=== PATIENT | male | born 1990 | race Caucasian/White ===

== ENCOUNTER 2020-11-13 10:06 | Outpatient (REF) | payer BC, SELFPAY ==
[2020-11-13 11:21] LABS: MANUAL DIFF FLAG NO
[2020-11-13 11:34] LABS: Basophils Percent Auto 0.7 % (0-2); Eosinophils Absolute Auto 0.1 X10*3/uL (0.0-0.4); Eosinophils Percent Auto 1.8 % (0-4); Hematocrit 46.5 % (42-52); Hemoglobin 16.7 g/dl (14.0-18.0); Imm Gran Abs Auto 0.01 X10*3/uL (0.00-0.03); Imm Gran Pct Auto 0.2 % (0.0-0.4); Lymphocytes Absolute Auto 1.6 X10*3/uL (1.2-4.9); Lymphocytes Percent Auto 29.4 % (20-40); Mean Corpuscular HGB Conc 35.9 g/dl (31.0-36.0); Mean Corpuscular Hemoglobin 32.3 pg (27.0-33.0); Mean Corpuscular Volume 89.9 fL (80-98); Mean Platelet Volume 10.5 fL (9.4-12.4); Monocytes Absolute Auto 0.4 X10*3/uL (0.1-1.2); Monocytes Percent Auto 6.8 % (2-11); Neutrophils Absolute Auto 3.4 X10*3/uL (2.0-8.3); Neutrophils Percent Auto 61.1 % (45-73); Platelet Count 224 X10*3/uL (160-400); Red Blood Count 5.17 X10*6/uL (4.60-5.80); White Blood Count 5.6 X10*3/uL (4.8-10.8)
[2020-11-13 12:39] LABS: Alanine Aminotransferase 21 U/L (0-40); Albumin Level 4.6 g/dL (3.5-5.0); Alkaline Phosphatase 49 U/L (39-117); Aspartate Amino Transferase 18 U/L (5-37); Blood Urea Nitrogen 11 mg/dL (9-16); Calcium 9.8 mg/dL (8.4-10.2); Cholesterol 175 mg/dL; Estimated Glomerular Filt Rate > 60; Glucose Fasting 86 mg/dL (60-99); HDL Cholesterol 35 mg/dL; LDL Cholesterol Calculated 102 mg/dl; Total Protein 6.9 g/dL (6.5-8.0); Triglycerides 190 mg/dL
[2020-11-13 12:41] LABS: Vitamin D 25-OH Total 33.6 ng/mL (>30)
[2020-11-13 13:20] LABS: Anion Gap 15 (12-20); Carbon Dioxide 26 mmol/L (22-29); Chloride 105 mmol/L (96-108); Potassium 4.1 mmol/L (3.3-5.1); Sodium 142 mmol/L (135-145)
== END 2020-11-13 10:07 | disposition home or self-care (01) ==
LOC: HO.MANLDS 10:06
PROVIDERS: PCP Internal Medicine; Visit Provider Internal Medicine
DX: Z00.00 Encounter for general adult medical examination without abnormal findings (principal)
CPT/HCPCS: 36415; 80053; 80061; 82306; 85025

== ENCOUNTER 2021-12-02 15:59 | Outpatient (REF) | payer BC, SELFPAY ==
[2021-12-02 17:30] LABS: MANUAL DIFF FLAG NO
[2021-12-02 17:34] LABS: Basophils Absolute Auto 0.1 X10*3/uL (0.0-0.2); Basophils Percent Auto 0.7 % (0-2); Eosinophils Absolute Auto 0.1 X10*3/uL (0.0-0.4); Eosinophils Percent Auto 2.1 % (0-4); Hematocrit 42.5 % (42.0-52.0); Hemoglobin 15.7 g/dl (14.0-18.0); Imm Gran Abs Auto 0.03 X10*3/uL (0.00-0.03); Imm Gran Pct Auto 0.4 % (0.0-0.4); Lymphocytes Absolute Auto 2.3 X10*3/uL (1.2-4.9); Lymphocytes Percent Auto 34.3 % (20-40); Mean Corpuscular HGB Conc 36.9 g/dl (31.0-36.0); Mean Corpuscular Hemoglobin 32.6 pg (27.0-33.0); Mean Corpuscular Volume 88.4 fL (80.0-98.0); Mean Platelet Volume 10.4 fL (9.4-12.4); Monocytes Absolute Auto 0.4 X10*3/uL (0.1-1.2); Monocytes Percent Auto 6.1 % (2-11); Neutrophils Absolute Auto 3.8 x10*3/uL (2.0-8.3); Neutrophils Percent Auto 56.4 % (45-73); Platelet Count 224 X10*3/uL (160-400); Red Blood Count 4.81 X10*6/uL (4.60-5.80); Red Cell Distribution Width 12.2 % (11.0-16.0); White Blood Count 6.8 X10*3/uL (4.8-10.8)
[2021-12-02 18:03] LABS: Alanine Aminotransferase 56 U/L (0-40); Albumin Level 4.7 g/dL (3.5-5.0); Alkaline Phosphatase 52 U/L (39-117); Anion Gap 11 (12-20); Aspartate Amino Transferase 40 U/L (5-37); Blood Urea Nitrogen 10 mg/dL (9-16); Calcium 9.7 mg/dL (8.4-10.2); Carbon Dioxide 28 mmol/L (22-29); Chloride 105 mmol/L (96-108); Cholesterol 212 mg/dL; Estimated Glomerular Filt Rate > 60; Glucose Random 77 mg/dL (60-115); HDL Cholesterol 38 mg/dL; Potassium 4.1 mmol/L (3.3-5.1); Sodium 140 mmol/L (135-145); Total Protein 7.3 g/dL (6.5-8.0); Triglycerides 427 mg/dL
[2021-12-02 18:24] LABS: Thyroid Stimulating Hormone 2.11 uIU/mL (0.32-4.0); Vitamin D 25-OH Total 24.9 ng/mL (>30)
[2021-12-06 08:57] LABS: Testosterone, Total 405 ng/dL (250-1100)
== END 2021-12-02 16:00 | disposition home or self-care (01) ==
LOC: HO.MANLDS 15:59
PROVIDERS: PCP Internal Medicine; Visit Provider Internal Medicine
DX: Z00.00 Encounter for general adult medical examination without abnormal findings (principal)
CPT/HCPCS: 36415; 80053; 80061; 82306; 84403; 84443; 85025

== ENCOUNTER → 2022-02-10 13:39 | Outpatient (BNVA) | payer OTHER, SELFPAY | PROVIDERS: PCP Internal Medicine; Visit Provider Internal Medicine | DX: S63.642A Sprain of metacarpophalangeal joint of left thumb, initial encounter (principal); S63.592A Other specified sprain of left wrist, initial encounter; X50.0XXA Overexertion from strenuous movement or load, initial encounter | CPT/HCPCS: 73110; 99203 ==

== ENCOUNTER → 2022-02-24 09:51 | Outpatient (BNVA) | payer OTHER, SELFPAY | PROVIDERS: PCP Internal Medicine; Visit Provider Physician Assistant Medical | DX: S63.642A Sprain of metacarpophalangeal joint of left thumb, initial encounter (principal); S63.592A Other specified sprain of left wrist, initial encounter; X50.0XXA Overexertion from strenuous movement or load, initial encounter | CPT/HCPCS: 99213 ==

== ENCOUNTER 2022-02-26 08:57 | Outpatient (RCR) | payer OTHER, BC, SELFPAY ==
--- NOTE | 2022-02-26 11:04 | MHC.OT.EP ---
[address] [phone] Occupational Therapy Plan of Care Date of Evaluation: 02/26/22 Diagnosis: L THUMB/ WRIST SPRAIN Assessment: MR KIRK IS 2.5 WEEKS POST INJURY TO HIS L THUMB. HE REPORTS HIS PAIN HAS IMPROVED SIGNIFICANTLY WITH USE OF A PREFAB RADIAL GUTTER SPLINT AND RESTING. HE HAS MILD-MODERATE PAIN IN HIS MCP JOINT, OCCASIONALLY RADIATING THROUGH RADIAL ASPECT OF HIS NON DOMINANT WRIST. 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 A 32% LIMITATION IS REPORTED PER THE QUICK DASH ASSESSMENT. ONGOING SKILLED OT IS WARRANTED FOR ORTHOSIS NEEDS, STRENGTHENING, EDEMA MANAGEMENT, Pt EDUCATION, AND WORK CONDITIONING. 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 Thank you once again for your referral.
--- NOTE | 2022-03-26 14:53 | MHC.OT.DC ---
[address] [phone] F: [phone] Occupational Therapy Discharge Note Provider: Danika Pisano PA-C Diagnosis: L THUMB/ WRIST SPRAIN Date of Evaluation: 02/26/22 Date of Discharge: 03/26/22 Treatments to Date: 1 Discharge Status: Patient Elected to Stop Discharge Summary: Barber was seen for his initial OT assessment about 2.5 weeks s/p thumb injury. At this time he had been doing well and was planning to return to full work duties 03/03/22. He has not followed up for further appointments after initial evaluation, I anticipate he has continued to improve and we will be formally discharging from services at this time. Electronically Signed By: GISELLE Andrade/Jairo CHT Reviewed/agree with student documentation: N/A Therapist: Please Sign and return to therapist, thank you for your referral.
== END 2022-03-26 14:54 | disposition home or self-care (01) ==
LOC: HO.OT 08:57
PROVIDERS: PCP Internal Medicine; Visit Provider Physician Assistant Medical
DX: S63.602D Unspecified sprain of left thumb, subsequent encounter (principal); S63.502D Unspecified sprain of left wrist, subsequent encounter
CPT/HCPCS: 29130; 97166; 97760

== ENCOUNTER 2022-10-08 10:21 | Outpatient (REF) | payer BC, SELFPAY ==
[2022-10-08 11:46] LABS: Syphilis Screen Nonreactive (Nonreactive)
[2022-10-08 11:51] LABS: HBS Num1 47.61 mIU/mL (0-7.99); HBc Num1 0.06 S/CO (0.00-0.79); HBsAGNum1 0.31 S/CO (0.00-0.99); HIV AB/AG Nonreactive (Nonreactive); HIV Num 1 0.06 S/CO (0.00-0.99); Hepatitis A Antibody IgM 0.18 Index (0-0.79); Hepatitis B Core Antibody Nonreactive (Nonreactive); Hepatitis B Surface Antigen Negative (Negative); ~HepC Num1 0.13 S/CO (0.00-0.79); ~Hepatitis A Antibody IgM Nonreactive (Nonreactive); ~Hepatitis B Surface Antibody REACTIVE (Nonreactive); ~Hepatitis C Antibody Nonreactive (Nonreactive)
[2022-10-08 13:13] LABS: CT PCR NOT DETECTED (Not Detect.); NG PCR NOT DETECTED (Not Detect.)
== END 2022-10-08 10:22 | disposition home or self-care (01) ==
LOC: HO.LAB 10:21
PROVIDERS: PCP Internal Medicine; Visit Provider Internal Medicine
DX: Z11.3 Encounter for screening for infections with a predominantly sexual mode of transmission (principal); Z11.4 Encounter for screening for human immunodeficiency virus [HIV]
CPT/HCPCS: 0353U; 86704; 86706; 86709; 86780; 86803; 87340; 87389

== ENCOUNTER 2022-12-17 09:09 | Outpatient (REF) | payer BC, SELFPAY ==
[2022-12-17 11:01] LABS: MANUAL DIFF FLAG NO
[2022-12-17 11:11] LABS: Basophils Absolute Auto 0.1 X10*3/uL (0.0-0.2); Eosinophils Absolute Auto 0.1 X10*3/uL (0.0-0.4); Eosinophils Percent Auto 1.9 % (0-4); Hematocrit 42.2 % (42.0-52.0); Hemoglobin 15.5 g/dl (14.0-18.0); Imm Gran Abs Auto 0.01 X10*3/uL (0.00-0.03); Imm Gran Pct Auto 0.2 % (0.0-0.4); Lymphocytes Absolute Auto 1.5 X10*3/uL (1.2-4.9); Lymphocytes Percent Auto 31.5 % (20-40); Mean Corpuscular HGB Conc 36.7 g/dl (31.0-36.0); Mean Corpuscular Hemoglobin 32.8 pg (27.0-33.0); Mean Corpuscular Volume 89.2 fL (80.0-98.0); Mean Platelet Volume 10.7 fL (9.4-12.4); Monocytes Absolute Auto 0.3 X10*3/uL (0.1-1.2); Monocytes Percent Auto 6.6 % (2-11); Neutrophils Absolute Auto 2.8 x10*3/uL (2.0-8.3); Neutrophils Percent Auto 58.8 % (45-73); Platelet Count 217 X10*3/uL (160-400); Red Blood Count 4.73 X10*6/uL (4.60-5.80); Red Cell Distribution Width 11.9 % (11.0-16.0); White Blood Count 4.8 X10*3/uL (4.8-10.8)
[2022-12-17 12:33] LABS: Alanine Aminotransferase 26 U/L (0-40); Albumin Level 4.3 g/dL (3.5-5.0); Alkaline Phosphatase 47 U/L (39-117); Anion Gap 13 (12-20); Aspartate Amino Transferase 25 U/L (5-37); Blood Urea Nitrogen 12 mg/dL (9-16); Calcium 8.9 mg/dL (8.4-10.2); Carbon Dioxide 23 mmol/L (22-29); Chloride 108 mmol/L (96-108); Cholesterol 172 mg/dL; Estimated Glomerular Filt Rate > 60; Glucose Random 91 mg/dL (60-115); HDL Cholesterol 33 mg/dL; LDL Cholesterol Calculated 110 mg/dl; Potassium 4.3 mmol/L (3.3-5.1); Sodium 140 mmol/L (135-145); Total Protein 6.3 g/dL (6.5-8.0); Triglycerides 149 mg/dL; Vitamin D 25-OH Total 29.3 ng/mL (>30)
== END 2022-12-17 09:10 | disposition home or self-care (01) ==
LOC: HO.MANLDS 09:09
PROVIDERS: Visit Provider Internal Medicine
DX: Z00.00 Encounter for general adult medical examination without abnormal findings (principal); E55.9 Vitamin D deficiency, unspecified; R53.83 Other fatigue; Z82.49 Family history of ischemic heart disease and other diseases of the circulatory system
CPT/HCPCS: 36415; 80053; 80061; 82306; 85025

== ENCOUNTER 2024-03-25 11:48 | Outpatient (REF) | payer BC, SELFPAY ==
[2024-03-25 16:12] LABS: MANUAL DIFF FLAG NO
[2024-03-25 16:14] LABS: Basophils Absolute Auto 0.1 X10*3/uL (0.0-0.2); Basophils Percent Auto 1.1 % (0-2); Eosinophils Absolute Auto 0.1 X10*3/uL (0.0-0.4); Hematocrit 43.5 % (42.0-52.0); Imm Gran Abs Auto 0.01 X10*3/uL (0.00-0.03); Imm Gran Pct Auto 0.2 % (0.0-0.4); Lymphocytes Absolute Auto 1.7 X10*3/uL (1.2-4.9); Lymphocytes Percent Auto 38.6 % (20-40); Mean Corpuscular HGB Conc 36.8 g/dl (31.0-36.0); Mean Corpuscular Hemoglobin 33.3 pg (27.0-33.0); Mean Corpuscular Volume 90.6 fL (80.0-98.0); Mean Platelet Volume 10.9 fL (9.4-12.4); Monocytes Absolute Auto 0.3 X10*3/uL (0.1-1.2); Monocytes Percent Auto 6.4 % (2-11); Neutrophils Absolute Auto 2.3 x10*3/uL (2.0-8.3); Neutrophils Percent Auto 51.7 % (45-73); Platelet Count 232 X10*3/uL (160-400); Red Cell Distribution Width 11.9 % (11.0-16.0); White Blood Count 4.5 X10*3/uL (4.8-10.8)
[2024-03-26 01:28] LABS: Alanine Aminotransferase 19 U/L (0-40); Albumin Level 4.6 g/dL (3.5-5.0); Alkaline Phosphatase 49 U/L (39-117); Anion Gap 15 (12-20); Aspartate Amino Transferase 24 U/L (5-37); Bilirubin Total 1.2 mg/dL (0.0-1.0); Blood Urea Nitrogen 12 mg/dL (9-16); Calcium 9.5 mg/dL (8.4-10.2); Carbon Dioxide 24 mmol/L (22-29); Chloride 105 mmol/L (96-108); Cholesterol 179 mg/dL (<200); Estimated Glomerular Filt Rate > 60; Glucose Random 66 mg/dL (60-115); HDL Cholesterol 36 mg/dL (>40); LDL Cholesterol Calculated 119 mg/dL (<100); Potassium 3.9 mmol/L (3.3-5.1); Sodium 140 mmol/L (135-145); Total Protein 6.8 g/dL (6.5-8.0); Triglycerides 122 mg/dL (<150)
[2024-03-26 01:52] LABS: Vitamin D 25-OH Total 35.8 ng/mL (>30)
== END 2024-03-25 11:49 | disposition home or self-care (01) ==
LOC: HO.MANLDS 11:48
PROVIDERS: Visit Provider Internal Medicine
DX: E55.9 Vitamin D deficiency, unspecified (principal); E16.2 Hypoglycemia, unspecified; Z13.220 Encounter for screening for lipoid disorders
CPT/HCPCS: 36415; 80053; 80061; 82306; 85025

== ENCOUNTER 2025-03-28 12:00 | Outpatient (REF) | payer BC, SELFPAY ==
--- OUTSIDE RECORDS SUMMARY | 2025-03-28 13:09 | XMS_ITS | Encounter Summary ---
Author Organization [facility] Address [address] [address] Phone Care Team Providers Care Sampler Pickup Name Role Phone Regan Waite DO Primary Care Provider [phone] Regan Waite DO Unavailable Reason for Referral * Consultation (Routine) - Closed Specialty Diagnoses / Procedures Referred By Kindra t Referred To Contact Pulmonary Disease Regan Waite DO Phone: tel: fax: [email or web address] [facility] [address] [place] [address] Phone: tel: Referral ID Status Reason Start Date Expiration Date Visits Re quested Visits Authorized [id number] Closed 04/17/2023 04/17/2024 1 1 Encounter Details Date Type Department Care Team (Late st Contact Info) Description 04/17/2023 Transcribe Orders [facility] Pulmonary, Allergy and Critical Care Medicine [address] [facility] [place] [address] Regan aWite DO [address] [facility] [place] [address] [email or web address] Social History Tobacco Use Types Packs/Day Years Used Date Smoking Tobacco: Never Smokeless Tobacco: Never Alcohol Use Standard Drinks/Week Comments Yes 0 (1 standard drink = 0.6 oz pur e alcohol) Education Answer Date Recorded Are you interested in more education? Not on yaneth e 01/02/2023 Are you concerned about learning? Not on file 01/02/2023 No 01/02/2023 No 01/02/2023 Digital Access Answer Date Recorded No 01/30/2023 No 01/30/2023 No 01/30/2023 Reliable internet access at home? Not on file 01/30/2023 Device with a working camera? Not on file Sex and Gender Information Value Date Recorded Sex Assigned at Male 10/29/2018 4:34 AM EST Legal Sex Male 9:00 PM EDT Gender Identity Male 10/29/2018 4:34 AM EST Sexual Orientation Straight 10/29/2018 4: 34 AM EST documented as of this encounter Plan of Treatment Scheduled Referrals Name Type Priority Associated Diagnoses Order Schedule Ambulatory referral to [facility] Pulmonology Outpatient Referral Routine Ordered: 04/17/2023 documented as of this encounter Visit Diagnoses Not on filedocumented in this encounter Care Teams Sampler Pickup Relationship Specialty Start Date End Date Regan Waite DO PCP - General Internal Medicine 10/29/18 Regan Waite DO [address] [place] [address] Insurance Assigned Provider 12/12/23 documented as of this encounter Additional Source Comments The information contained in this document represents components of the legal health record. It is not the complete legal health record.[facility]
--- OUTSIDE RECORDS SUMMARY | 2025-03-28 13:09 | XMS_ITS | Data Portability ---
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 MUST MEET 2 OUT OF 3 ELEMENTS: PROBLEMS, DATA OR RISK ELEMENT 1: PROBLEMS ADDRESSED 1 OR MORE CHRONIC ILLNESS WITH EXACERBATION OR 2 OR MORE STABLE CHRONIC ILLNESSES OR 1 UNDIAGNOSED NEW PROBLEM OR 1 ACUTE ILLNESS W/SYMPTOMS OR 1 ACUTE COMPLICATED INJURY ELEMENT 2: DATA MUST MEET 1 OF 3 CATEGORIES CATEGORY 1: REVIEW OF PRIOR EXTERNAL NOTES, REVIEW OF RESULTS, ORDERING OF EACH TEST, ASSESSMENT REQUIRING INDEPENDENT HISTORIAN OR CATEGORY 2: INDEPENDENT INTERPRETATION OF TESTS BY ANOTHER PHYSICIAN OR SPECIALIST OR CATEGORY 3: DISCUSSION OF MGT OR TEST INTERPRETATION W/EXTERNAL PHYSICIAN OR SPECIALIST ELEMENT 3: RISK RISK OF COMPLICATIONS AND/OR MORBIDITY OR MORTALITY OF PATIENT MANAGEMENT PROVIDER MUST THOROUGHLY DOCUMENT EACH ELEMENT THAT IS COVERED Not available 11/01/2024 14:12:35 Plan of Treatment Reminders Order Date Submit Date Provider Last Modified By Organization Details Last Modified Time Details Appointments ANNUAL EXAM 2024 11:30A M DR CR Not available Not available Not available ANNUAL EXAM 2025 09:00A M DR CR Not available Not available Not available Lab vitamin D, 25-hydrox y, total, serum 2024 025 [facility], [address] [place] [address], [place], [address], 03/28/2025 11:57:58 CMP, serum or plasma 2024 025 [facility], [address] [place] [address], [id number], 03/28/2025 11:51:24 lipid panel, blood 2024 025 [facility], [address] [place] [address], [id number], 03/28/2025 11:51:24 CBC w/ diff 2024 025 [facility], [address] [place] [address], [id number], 03/28/2025 11:51:24 vitamin D, 25-hydrox y, total, serum 2023 024 [facility], [address] [place] [address], [id number], 03/28/2024 11:15:47 lipid panel, serum 2023 024 [facility], [address] [place] [address], [address], 03/28/2024 11:15:47 CMP, serum or plasma 2023 024 [facility], [address] [place] [address], [id number], 03/28/2024 11:15:46 CBC w/ auto diff 2023 024 [facility], [address] [place] [address], [id number], 03/28/2024 11:15:47 CMP, serum or plasma 2022 023 [facility], [address] [place] [address], [id number], 12/18/2022 12:10:43 lipid panel, blood 2022 023 [facility], [address] [place] [address], [id number], 12/18/2022 12:10:43 vitamin D, 25-hydrox y, total, serum 2022 023 [facility], [address] [place] [address], [id number], 12/18/2022 12:10:43 CBC w/ diff 2022 023 [facility], [address] [place] [address], [id number], 12/18/2022 12:10:43 testoster one, total, serum 2021 022 [facility], [address] [place] [address], [address], 12/06/2021 11:13:59 CMP, serum or plasma 2021 022 [facility], [address] [place] [address], [address], 12/03/2021 11:54:07 lipid panel, blood 2021 022 [facility], [address] [place] [address], [address], 12/03/2021 11:54:07 CBC w/ diff 2021 022 [facility], [address] [place] [address], [address], 12/03/2021 11:54:08 vitamin D, 25-hydrox y, total, serum 2021 022 [facility], [address] [place] [address], [address], 12/03/2021 11:54:08 TSH, serum or plasma 2021 022 [facility], [address] [facility], [place], [address], 12/03/2021 11:54:08 Referral dermatolo gist referral 2024 025 [email or web address] Masters MD, [address] [facility], [place], [address], 11/01/2024 16:34:29 Procedures None recorded. Surgeries None recorded. Imaging None recorded. Medication Orders diazepam 5 mg tablet 2024 025 [facility], [address] [place], [address], 03/28/2025 11:53:45 valacyclo vir 1 gram tablet 2024 025 [id number], [address] [place], [place], [id number], 03/28/2025 11:34:22 diazepam 5 mg tablet 2024 025 [id number], [address] [place], [place], [id number], 11/01/2024 14:16:55 diazepam 5 mg tablet 2023 024 [facility] Not available 03/23/2024 15:16:14 diazepam 5 mg tablet 2022 023 [facility] Not available 12/12/2022 15:05:59 Patient TargetsNo targets recorded. 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 [email or web address] [facility] ([facility]) [address] [place], [address], 04/13/2023 10:33:52 04/10/20 23 04/10/2023 compl ete PFT w/ post cox [place] hodil ator mark metry * No observ ation record ed. [email or web address] [facility] [address], [place], [address], 04/13/2023 10:33:52 Result Notes None recorded. Problems Name Problem SNOMED Code Status Onset Date Resolution Date Notes Provider Name and Address Organization Details Recorded Time [facility] emia 599964791 Active 2017 relative Griselda sales [facility] 8 14:01:40 Allergic rhinitis 29669869 Active 2017 Griselda sales [facility] 8 14:01:49 Anxiety 46885583 Active 2017 Peace HEIDI Carter [address] [place] [address], [address], [facility] [place] 8 10:54:48 Vitamin D deficien cy 20583556 Active 2018 Peace HEIDI Carter [address] [place] [address], [address], [facility] [place] 9 14:34:27 Concussi on injury of brain 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 2018 HEIDI Carter [address] [place] [address], [address], [facility] [place] 9 14:34:38 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 HEIDI Carter [address] [place] [address], [address], [facility] [place] 0 10:25:42 Urethrit is 81244116 Active 2022 Regan Cr, DO [address] [place] [address], [address], [facility] [place] Internal [facility] 3 15:59:50 Post-acu te COVID-19 9591104920 Active 2022 Regan Cr, DO [address] [place] [address], [address], [facility] [place] 3 15:01:13 Viral wart on finger 679059275 Active 2024 Regan Cr, DO [address] [place] [address], [address], [facility] [place] Internal [facility] 5 14:13:33 Notes:Attention issues. ? AD D Problem Notes None recorded. Medical Equipment None Reported. Allergies Allergen ID Allergen Name Allergen Category Reaction Reaction Severity Criticality Documentation Date Start Date Code Code System Note Provider Name and Address Organization Details Recorded Time 229 Substance with sulfonami de structure and antibacte rial mechanism of action (substanc e) medicatio n Not available Not available Not available 05/25/2018 40855 8003 [facility] 8 14:00:54 Medications Name Sig Start Date Stop Date Status Note LastModified by Organization Details LastModified Time valacyclovi r 1 gram tablet TAKE 1 TABLET BY MOUTH EVERY 12 HOURS FOR 10 DAYS 03/28 completed Not Available Not Available Not Available cimetidine 800 mg tablet TAKE 1 TABLET BY MOUTH TWICE DAILY active Not Available Not Available No t Available ceftriaxone 1 gram solution for injection Take 1 g by injection route as directed for 1 day. 12/12 completed Not Available Not Available Not Available amoxicillin 875 mg tablet TAKE 1 TABLET BY MOUTH EVERY 12 HOURS FOR 7 DAYS 11/13 completed Not Available Not Available Not Available imiquimod 5 % topical cream packet APPLY TO AFFECTED AREAS DAILY. COVER WITH DUCT TAPE OVERNIGHT active Not Available Not Available No t Available benzonatate 100 mg capsule 11/07 completed Not Available Not Available Not Available oseltamivir 75 mg capsule 11/07 completed Not Available Not Available Not Available cefuroxime axetil 500 mg tablet Take 1 tablet every 12 hours by oral route. 11/07 completed Not Available Not Available Not Available Vitamin D2 1,250 mcg (50,000 unit) capsule Take 1 capsule every week by oral route for 84 days. 12/12 completed Not Available Not Available Not Available doxycycline hyclate 100 mg tablet TAKE 1 TABLET BY MOUTH TWICE DAILY FOR 10 DAYS 12/12 completed Not Available Not Available Not Available diazepam 5 mg tablet TAKE 1/2 TO 1 TABLET BY MOUTH EVERY DAY NEEDED 2024 active Not Available Not Available Not Avai lable amoxicillin 875 mg-potassiu m clavulanate 125 mg tablet 11/13 completed Not Available Not Available Not Available Boostrix Tdap 2.5 Lf unit-8 mcg-5 Lf/0.5 mL intramuscul ar syringe 11/10 completed Not Available Not Available Not Available diazepam 11/01 completed Not Available Not Available Not Available Vitamin D3 qd 11/13 completed Not Available Not Available Not Available multivitami n 12/12 completed Not Available Not Available Not Available Zyrtec 10 mg capsule Take 1 capsule every day by oral route. active Not Available Not Available No t Available Afluria Quad (PF) 60 mcg (15 mcg x 4)/0.5 mL IM syringe 11/10 completed Not Available Not Available Not Available Vitals Date Recorded Body height Body mass index (BMI) Body weight Heart rate Oxygen saturation Oxygen saturation in Arterial blood by Pulse oximetry Systolic And Diastolic Provider Name and Address Organization Details Last Updated DateTime 5 175.26 cm 27.3 kg/m2 92425.5 9 g 86 /min 98 % 98 % 116/64 mm[Hg] Amuari Schmitt [facility] 5 13:51:35 Date Recorded Body height Body mass index (BMI) Body weight Heart rate Oxygen saturation Oxygen saturation in Arterial blood by Pulse oximetry Systolic And Diastolic Provider Name and Address Organization Details Last Updated DateTime 2 177.17 cm 28.3 kg/m2 63278.3 1 g 79 /min 97 % 97 % 110/70 mm[Hg] Regan Cr DO [address] [place], [address] 2 15:15:46 Date Recorded Body height Body mass index (BMI) Body weight Heart rate Oxygen saturation Oxygen saturation in Arterial blood by Pulse oximetry Systolic And Diastolic Provider Name and Address Organization Details Last Updated DateTime 3 177.17 cm 27.2 kg/m2 75380.3 7 g 71 /min 98 % 98 % 118/80 mm[Hg] Regan Cr, DO [address] [place], [address], [facility] 3 14:47:37 Date Recorded Body height Body mass index (BMI) Body weight Heart rate Oxygen saturation Oxygen saturation in Arterial blood by Pulse oximetry Systolic And Diastolic Provider Name and Address Organization Details Last Updated DateTime 4 175.26 cm 27.5 kg/m2 73770.1 8 g 71 /min 98 % 98 % 110/60 mm[Hg] Yael Lockhart [facility] Internal [facility] 4 14:53:47 Date Recorded Body height Body mass index (BMI) Body weight Oxygen saturation Oxygen saturation in Arterial blood by Pulse oximetry Heart rate Systolic And Diastolic Provider Name and Address Organization Details Last Updated DateTime 5 175.26 cm 28.5 kg/m2 08486.6 1 g 96 % 96 % 95 /min 108/70 mm[Hg] Sarai Doyle [facility] 5 11:36:17 Social History Question Answer Notes LastModified by Organizat ion Details LastModified Time Tobacco Smoking Status Never Smoker Griselda sales [facility] 05/26/2018 09:58:01 What Was The Date Of Your Most Recent Tobacco Screening? 03/28/2025 [email or web address] Information not available 03/28/2025 Sex: Unknown Functional Status Question Answer Note LastModified by Organization D etails LastModified Time Do you or have you ever used any other forms of tobacco or nicotine? No [email or web address] Information not available 03/23/2024 Mental Status None recorded. Family History Nothing Reported. Medical History No medical history recorded. Immunizations Vaccine Type Date Status Note Provider Nam e and Address Organization Details Recorded Time COVID-19, mRNA, LNP-S, PF, 100 mcg/0.5mL dose or 50 mcg/0.25mL dose 10/24/2020 completed Denton Workman O [address] [place], [address], [facility] [place] Internal [facility] 12/02/2021 15:14:53 Tdap 01/31/2022 completed Cara sales [facility] 12/17/2022 09:26:30 COVID-19, mRNA, LNP-S, PF, 100 mcg/0.5mL dose or 50 mcg/0.25mL dose 09/21/2020 stan sales [facility] 10/12/2020 09:23:33 Past Encounters Encounter ID Performer Location Encounter Start Date Encounter Closed Date Diagnosis/Indication Diagnosis SNOMED-CT Code Diagnosis ICD10 Code Diagnosis Note [id number] [address] [facility] [address] [facility], [place] [address] 05/26/2018 09:51:30 05/26/2018 10:31:17 Acute sinusitis 51899225 J01.90 switch from afrin to flonase take mucinex Acute left otitis media 016933728 H66.92 as aobve [id number] Regan Cr [facility] [address] [place] [address] 06/09/2018 10:46:06 06/09/2018 11:11:12 Adult health examination 815221605 Z00.01 Active or passive immunization 377011990 Z23 Generalize d anxiety disorder 80761252 F41.1 panic attacks [id number] Regan Cr [facility] [address] [facility] [place] [address] 09/20/2018 10:35:19 09/20/2018 11:29:43 Fatigue 29800472 R53.83 Blurring o f visual image 569595042 H53.8 of right eye only Right uppe r quadrant pain 145875453 R10.11 Vitamin D deficiency 347 69175 E55.9 [id number] Regan Cr [facility] [address] [facility],[place] [address] 11/03/2018 14:19:03 11/03/2018 15:00:42 Vitamin D deficiency 36803125 E55.9 Postconcus eh syndrome 24539674 F07.81 has many ongoing sx suggestive of postconcus eh, though with gradual improvemen t will recommend out of work for an additional week limit screen time and heavy concentrat collette activities Neck pain 56155289 M54.2 will monitor it declines PT at this time Thoracic back pain 43208 8004 M54.6 will monitor declines PT at this time [id number] Regan Cr [facility] [address] [facility],[place] [address] 11/10/2018 14:31:36 11/10/2018 15:57:34 Postconcussion syndrome 88030235 F07.81 resolved, see work note [id number] Regan Cr [facility] [address] [place] [address],[place] [address] 12/27/2018 14:50:55 12/27/2018 15:37:42 Recurrent acute otitis media 088314648 H65.199 Vitamin D deficiency 347 18049 E55.9 improved, follow [id number] Regan Cr [facility] [address] [facility],[place] [address] 11/08/2019 09:53:01 11/08/2019 10:48:28 Adult health examination 651756616 Z00.00 has an elevated bmi, normal waist circumfere nce Active or passive immunization 000016652 Z23 Exercise i nduced bronchospasm 171834884 J45.990 Vitamin D deficiency 347 88966 E55.9 Generalize d anxiety disorder 21936232 F41.1 panic attacks Skin lesion 57712555 L98 .9 [id number] Regan Cr [facility] [address] [facility],[place] [address] 10/03/2020 08:18:39 10/03/2020 12:02:50 Reactive lymphadenopathy 428738339 R59.1 possible swollen lymph node due to COVID vaccine but may also be cyst or lipoma hard to tell from video will treat with abx and fu next week when we are back in the office for in person eval of the area patient [place] [id number] Regan Cr [facility] [address] [facility] [address],[place] [address] 10/12/2020 09:18:42 10/12/2020 10:43:58 Mass of shoulder region 415514986 R22.32 strange and unusual [place] [id number] Regan Cr [facility] [address] [facility] [address] [place] [address] 11/13/2020 09:36:49 11/13/2020 10:23:22 Active or passive immunization 966417054 Z23 Adult heal th examination 843819818 Z00.00 Anxiety 08045786 F41.9 Pain of left wrist 78649 17777 90652 M25.532 [id number] Regan Cr [facility] [address] [facility] [address] [place] [address] 12/02/2021 15:01:06 12/02/2021 15:57:57 Active or passive immunization 341280046 Z23 utd Adult heal th examination 873447285 Z00.00 doing well and no major issueexcep t that which we discussed about covid and the libido Reduced libido 4683489 R 68.82 [id number] Rgean Cr [facility] [address] [facility] [address] [place] [address] 12/12/2022 14:41:32 12/12/2022 15:37:10 Active or passive immunization 598936772 Z23 utd Adult heal th examination 388110493 Z00.00 doing well and no major issue Post-acute COVID-19 1119 675609 U09.9 [id number] Regan Cr [facility] [address] [facility] [address] [place] [address] 03/23/2024 14:49:01 03/23/2024 15:45:04 Depression screening 856148616 Z13.31 negative Vitamin D deficiency 347 07662 E55.9 will chk level Hypoglycemia 846401976 E 16.2 will chk lab Anxiety 91663360 F41.9 very sporadic use of 15 tabs over a year Cholesterol screening 27 8569878 Z13.220 [id number] [facility] [address] [facility],[place] [address] 11/01/2024 13:41:35 11/01/2024 14:27:20 Depression screening 494507587 Z13.31 negative Viral wart on finger 402 192163 B07.9 Anxiety 86849746 F41.9 very sporadic use of 15 tabs over a year [id number] Regan Cr [facility] [address] [facility], [place] [address] 03/28/2025 11:28:18 03/28/2025 11:59:43 Active or passive immunization 364888439 Z23 utd Depression screening 171 244594 Z13.31 negative Vitamin D deficiency 347 10065 E55.9 will chk level Anxiety 38193458 F41.9 very sporadic use of 15 tabs over a year Well adult 578990176 Z00 .00 doing well and no major issue Health Concerns Section Related Observation LastModified by Organization Detai ls LastModified Time None Recorded Concern Status LastModified by Organization Details LastModified Time None Recorded Advance Directives Directive None Recorded Payers Insurance Date Sequence Insurance Name Policy Number Policy Issa Covered Member ID Issa Member ID Guarantor Name 03/25/2025 1 [facility] [place] [id number] Barber Mckinney [id number] Barber Mckinney 11/09/2018 [employer] - [employer] [place] Barber Mckinney Notes Date Note Type Note Provider Name a nd Address Organization Details Recorded Time 2 text/html Annual WellnessReported bypatient.Diet and Nutrition:healthy diet Fracture Risk:no history of fractures; no recent explained fracture; no sudden unexplained fractures; no previous musculoskeletal injuries Physical Activity:exercises on a regular basis; recent increase in physical activity; good physical condition Additional Lifestyle Factors:no tobacco use; no alcohol intake; stopped drinking alcohol Depression Risk:never feels sad, empty, or tearful; no loss of interest in activities; no significant changes in weight; no sleep disturbances or insomnia; no agitation; no loss of energy; no feelings of worthlessness or guilt; no thoughts of suicide; no history of depression; no history of mood disorders Hearing:no loss of hearing Vision:no vision problems Regan CrDO [address] [place] [address], [address], [facility] [place] Internal [facility] 12/02/2021 15:51:05 3 text/html Annual WellnessReported bypatient.Diet and Nutrition:healthy diet Fracture Risk:no history of fractures; no recent explained fracture; no sudden unexplained fractures; no previous musculoskeletal injuries Physical Activity:exercises on a regular basis; recent increase in physical activity; good physical condition Additional Lifestyle Factors:no tobacco use; no alcohol intake; stopped drinking alcohol Depression Risk:never feels sad, empty, or tearful; no loss of interest in activities; no significant changes in weight; no sleep disturbances or insomnia; no agitation; no loss of energy; no feelings of worthlessness or guilt; no thoughts of suicide; no history of depression; no history of mood disorders Hearing:no loss of hearing Vision:no vision problems Regan CrDO [address] [place] [address], [address], [facility] [place] Internal [facility] 12/12/2022 15:09:11 4 text/html her for cpedoing well no major issues Regan Cr [address] [place] [address], [address], [facility] [place] 03/23/2024 15:17:09 5 text/html has a noted lesion sub ungual wart and this has been self treated with alll manner of treatments otc none of which workedhere for eval Regan RojasAndrew JoseDO anil [address] [place] [address], [address], [facility] [place] 11/01/2024 14:17:33 5 text/html Annual WellnessReported bypatient.Diet and Nutrition:healthy diet Fracture Risk:no history of fractures; no recent explained fracture; no sudden unexplained fractures; no previous musculoskeletal injuries Physical Activity:exercises on a regular basis; recent increase in physical activity; good physical condition Additional Lifestyle Factors:no tobacco use; no alcohol intake; stopped drinking alcohol Depression Risk:never feels sad, empty, or tearful; no loss of interest in activities; no significant changes in weight; no sleep disturbances or insomnia; no agitation; no loss of energy; no feelings of worthlessness or guilt; no thoughts of suicide; no history of depression; no history of mood disorders Hearing:no loss of hearing Vision:no vision problemsAnxiety/Depre ssionReported bypatient.Severity:de nies suicidal ideations; able to maintain relationships; does not interfere with activities of daily living Context:no major life stressors Associated Symptoms:denies homicidal ideations; no significant weight gain; no significant weight loss; no visual/auditory hallucinations; no delusions; no shortness of breath; mood good; no anxiety; no crying spells; no panic; no isolation; sleeping well; appetite good; energy good; no apathy; maintaining functionality here for [facility] Regan Cr, DO [address] [facility], [place], [id number], FAB [facility] 03/28/2025 11:55:44
--- OUTSIDE RECORDS SUMMARY | 2025-03-28 13:09 | XMS_ITS | Clinical Summary ---
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 Name Role Phone Unavailable Primary Care Provider Unavailabl e Immunizations Immunization Administration Dates Next Due DTaP 12/07/1995, 3,06/15/1992,04/30,02/03/1992 HPV, Quadrivalent 03/01/2013,11/11/2012 Hep B, ped/adol 05/26/1994,12/25/1993,11/21/1993 Hib (PRP-T) 03/05/1993, 2,04/30/1992,02/02 Influenza 05/27/2009, 9,07/24/2007,06/27 Influenza Split Preservative Free ID 11/11/2012 MMR 10/11/1996,03/05/1993 Meningococcal Conj (Menactra) [id number] 03/20/2011,0 02/18/2005 OPV 12/07/1995, 3,04/30/1992,02/02 Td (adult) (MBL), 2 Lf tetan us toxoid, PF, adsorbed 02/14/2004,02/18/2002 Tdap 10/11/2008 Varicella 09/22/2007,01/10/2000 Social History Tobacco Use Types Packs/Day Years Used Date Smoking Tobacco: Never Assessed Sex and Gender Information Value Date Recorded Sex Assigned at Not on file Legal Sex Male 3:51 PM EST Gender Identity Not on file Sexual Orientation Not on file Last Filed Vital Signs Vital Sign Reading Time Taken Comments Blood Pressure 118/69 11/11/2012 12:00 AM EST Pulse 76 11/11/2012 12:00 AM EST Temperature 36.1 C (97 F) 03/21/2014 12:00 AM EDT Respiratory Rate - - Oxygen Saturation 97% 12/05/2011 12:00 AM EDT Inhaled Oxygen Concentration - - Weight 79.9 kg (176 lb 3.2 oz) 03/21/2014 12:00 AM EDT Height 177.8 cm (5' 10 ) 11/11/2012 12:00 AM EST Body Mass Index 25.28 11/11/2012 12:00 AM EST Plan of Treatment Health Maintenance Due Date Last Done Comments HPV Vaccines (3 - Male 3-dose series) 05/24/2013 03/01/2013, 11/11/2012 DTaP,Tdap,and Td Vaccines (7 - Td or Tdap) 10/11/2018 10/11/2008, 02/14/2004, 02/18/2002, Additional history exists COVID-19 Vaccine ( season) 2024 Influenza Vaccines (#1) 2025 11/12/19 13, 05/27/2009, 10/11/2008, Additional history exists HIB Vaccines Completed 03/05/1993, 05/1992, 04/30/1992, Additional history exists Hepatitis B Vaccines Completed 05/26/1994, 12/25/1993, 11/21/1993 IPV Vaccines Completed 12/07/1995, 05/09, 04/30/1992, Additional history exists MMR Vaccines Completed 10/11/1996, 03/05/1993 Varicella Vaccines Completed 09/22/2007, 01/10/2000 Meningococcal Vaccine Aged Out 03/20/2011, 005 No longer eligible based on patient's age to complete this topic Hepatitis A Vaccines Aged Out No long er eligible based on patient's age to complete this topic Men B Vaccine Aged Out No longer elig ible based on patient's age to complete this topic Pneumococcal Vaccine Aged Out No long er eligible based on patient's age to complete this topic
[2025-03-28 18:07] LABS: MANUAL DIFF FLAG NO
[2025-03-28 18:17] LABS: Hematocrit 43.2 % (42.0-52.0); Hemoglobin 15.6 g/dl (14.0-18.0); Imm Gran Abs Auto 0.01 X10*3/uL (0.00-0.03); Imm Gran Pct Auto 0.2 % (0.0-0.4); Lymphocytes Absolute Auto 1.2 X10*3/uL (1.2-4.9); Mean Corpuscular HGB Conc 36.1 g/dl (31.0-36.0); Mean Corpuscular Hemoglobin 32.0 pg (27.0-33.0); Mean Corpuscular Volume 88.7 fL (80.0-98.0); NRBC Abs Auto 0.000 X10*3/uL (0.0-0.012); NRBC Pct Auto 0.0 /100WBC (0.0-0.2); Platelet Count 224 X10*3/uL (160-400); Red Blood Count 4.87 X10*6/uL (4.60-5.80); White Blood Count 4.7 X10*3/uL (4.8-10.8)
[2025-03-28 18:35] LABS: Alanine Aminotransferase 71 U/L (0-40); Albumin Level 4.8 g/dL (3.5-5.0); Alkaline Phosphatase 51 U/L (39-117); Anion Gap 12 (12-20); Aspartate Amino Transferase 43 U/L (5-37); Blood Urea Nitrogen 7 mg/dL (9-16); Calcium 9.2 mg/dL (8.4-10.2); Carbon Dioxide 25 mmol/L (22-29); Chloride 108 mmol/L (96-108); Cholesterol 189 mg/dL (<200); Estimated Glomerular Filt Rate > 60; HDL Cholesterol 33 mg/dL (>40); Potassium 3.8 mmol/L (3.3-5.1); Sodium 141 mmol/L (135-145); Total Protein 7.0 g/dL (6.5-8.0); Triglycerides 169 mg/dL (<150)
== END 2025-03-28 12:01 | disposition home or self-care (01) ==
LOC: HO.MANLDS 12:00
PROVIDERS: Visit Provider Internal Medicine
DX: Z00.00 Encounter for general adult medical examination without abnormal findings (principal); E55.9 Vitamin D deficiency, unspecified
CPT/HCPCS: 36415; 80053; 80061; 82306; 85025